=== PATIENT | male | born 1995 | race African-American/Black ===

== ENCOUNTER 2019-03-19 00:33 | Emergency (ER) | payer SELFPAY ==
[~2019-03-19] VITALS: Ht 190.5 cm; Wt 71.7 kg
[2019-03-19 00:39] VITALS: BP 124/70; PULSE 70; RESP 18; Ht 190.5 cm; Wt 71.7 kg
== END 2019-03-19 01:47 | disposition left against medical advice (07) ==
LOC: FTE 00:33
DX: Z53.21 Procedure and treatment not carried out due to patient leaving prior to being seen by health care provider (principal)